=== PATIENT | female | born 1950 | race Two or more races ===

== ENCOUNTER 2018-02-26 22:12 | Inpatient (IN) | payer MEDICARE, BC ==
[2018-02-27] MEDS: morphine 4 MG/ML VIAL IV (00:52)
[2018-02-27] MEDS: SOD CHLORIDE 0.9% 1,000 ML IV ×2 (00:52→05:45)
[2018-02-27] MEDS: ONDANSETRON 4 MG INJ IV (00:52)
[2018-02-27 00:58] LABS: ADD MAN DIFF? NO
[2018-02-27 01:02] LABS: WHITE BLOOD COUNT 5.9 10^3/ul (4.8-10.8)
[2018-02-27 01:02] LABS: BASOPHILS % 0.7 % (0.0-2.0); EOSINOPHILS % 0.2 % (0.0-7.0); HEMATOCRIT 28.4 % (37.0-47.0); HEMOGLOBIN 9.3 g/dl (12.0-16.0); LYMPHOCYTES # 0.9 10^3/ul (0.8-2.9); LYMPHOCYTES % 14.9 % (15.0-51.0); MEAN CORPUSCULAR HEMOGLOBIN 33.1 pg (29.0-33.0); MEAN CORPUSCULAR HGB CONC 32.7 g/dl (32.0-37.0); MEAN CORPUSCULAR VOLUME 101.1 fl (82.0-101.0); MEAN PLATELET VOLUME 9.9 fl (7.4-10.4); MONOCYTE # 1.3 10^3/ul (0.3-0.9); MONOCYTES % 21.1 % (0.0-11.0); NEUTROPHIL # 3.7 10^3/ul (1.6-7.5); NEUTROPHILS % 62.1 % (39.0-77.0); NUCLEATED RED BLOOD CELLS # 2.5 10^3/ul (0.0-0.0); NUCLEATED RED BLOOD CELLS% 41.7 /100WBC (0.0-0.0); PLATELET COUNT 353 10^3/UL (140-415); RED BLOOD COUNT 2.81 10^6/ul (4.20-5.40); RED CELL DISTRIBUTION WIDTH 16.4 % (11.5-14.5)
[2018-02-27 01:06] LABS: POSITIVE DIFF @See below
[2018-02-27 01:20] LABS: ALANINE AMINOTRANSFERASE 23 IU/L (13-69); ALBUMIN 3.9 g/dl (3.3-4.9); ALBUMIN/GLOBULIN RATIO 1.02; ALKALINE PHOSPHATASE 71 IU/L (42-121); ANION GAP 13 (8-16); ASPARTATE AMINO TRANSFERASE 34 IU/L (15-46); BILIRUBIN,INDIRECT 0.5 mg/dl (0-1.1); BILIRUBIN,TOTAL 0.5 mg/dl (0.2-1.3); BLOOD UREA NITROGEN 18 mg/dl (7-20); CALCIUM 9.7 mg/dl (8.4-10.2); CARBON DIOXIDE 28 mmol/L (21-31); CHLORIDE 102 mmol/L (97-110); CREATININE 0.71 mg/dl (0.44-1.00); GLUCOSE 139 mg/dl (70-220); LIPASE 12 U/L (23-300); POTASSIUM 3.8 mmol/L (3.5-5.1); SODIUM 139 mmol/L (135-144); TOTAL PROTEIN 7.7 g/dl (6.1-8.1)
[2018-02-27] MEDS: morphine 2 MG INJ IV ×2 (05:53→13:47)
[2018-02-27] MEDS ORDERED: ONDANSETRON 4 MG INJ IV (06:00)
[2018-02-27 11:41] LABS: ADD MAN DIFF? NO
[2018-02-27 11:44] LABS: WHITE BLOOD COUNT 4.1 10^3/ul (4.8-10.8)
[2018-02-27 11:44] LABS: BASOPHILS % 0.5 % (0.0-2.0); EOSINOPHILS % 0.5 % (0.0-7.0); HEMATOCRIT 24.7 % (37.0-47.0); HEMOGLOBIN 8.1 g/dl (12.0-16.0); LYMPHOCYTES # 1.7 10^3/ul (0.8-2.9); LYMPHOCYTES % 41.8 % (15.0-51.0); MEAN CORPUSCULAR HEMOGLOBIN 33.5 pg (29.0-33.0); MEAN CORPUSCULAR HGB CONC 32.8 g/dl (32.0-37.0); MEAN CORPUSCULAR VOLUME 102.1 fl (82.0-101.0); MEAN PLATELET VOLUME 9.8 fl (7.4-10.4); MONOCYTE # 1.3 10^3/ul (0.3-0.9); NEUTROPHILS % 25.2 % (39.0-77.0); NUCLEATED RED BLOOD CELLS # 1.6 10^3/ul (0.0-0.0); NUCLEATED RED BLOOD CELLS% 38.4 /100WBC (0.0-0.0); PLATELET COUNT 289 10^3/UL (140-415); RED BLOOD COUNT 2.42 10^6/ul (4.20-5.40); RED CELL DISTRIBUTION WIDTH 16.8 % (11.5-14.5)
[2018-02-27 11:51] LABS: POSITIVE DIFF @See below
[2018-02-27 11:52] LABS: MONOCYTES % 31.5 % (0.0-11.0)
[2018-02-27 12:11] LABS: ANION GAP 9 (8-16); BLOOD UREA NITROGEN 14 mg/dl (7-20); CALCIUM 8.4 mg/dl (8.4-10.2); CARBON DIOXIDE 30 mmol/L (21-31); CHLORIDE 105 mmol/L (97-110); GLUCOSE 86 mg/dl (70-220); POTASSIUM 3.5 mmol/L (3.5-5.1); SODIUM 140 mmol/L (135-144)
[2018-02-27] MEDS: D5W-0.45 NACL + KCL 20 MEQ 1,000 ML IV ×2 (13:18→22:13)
[2018-02-27] MEDS: ENOXAPARIN 40 MG/0.4 ML SYG SC (13:47)
[2018-02-27] MEDS: PANTOPRAZOLE 40 MG INJ IV (16:04)
[2018-02-27 16:12] LABS: ADD UMIC NO; UR ASCORBIC ACID NEGATIVE (NEGATIVE); UR BILIRUBIN (Dip) NEGATIVE (NEGATIVE); UR BLOOD (Dip) NEGATIVE (NEGATIVE); UR CLARITY CLEAR (CLEAR); UR COLOR YELLOW (YELLOW); UR GLUCOSE (Dip) NEGATIVE (NEGATIVE); UR KETONES (Dip) NEGATIVE (NEGATIVE); UR LEUKOCYTE ESTERASE (Dip) NEGATIVE Leu/ul (NEGATIVE); UR NITRITE (Dip) NEGATIVE (NEGATIVE); UR SPECIFIC GRAVITY (Dip) 1.014 (1.003-1.030); UR TOTAL PROTEIN (Dip) NEGATIVE (NEGATIVE); UR UROBILINOGEN (Dip) NEGATIVE (NEGATIVE)
[2018-02-27] MEDS: LORAZEPAM 2 MG INJ IV (22:14)
[2018-02-28 05:07] LABS: WHITE BLOOD COUNT 3.9 10^3/ul (4.8-10.8)
[2018-02-28 05:07] LABS: ABNORMAL IP MESSAGE 1; HEMATOCRIT 26.2 % (37.0-47.0); HEMOGLOBIN 8.6 g/dl (12.0-16.0); MEAN CORPUSCULAR HEMOGLOBIN 33.3 pg (29.0-33.0); MEAN CORPUSCULAR HGB CONC 32.8 g/dl (32.0-37.0); MEAN CORPUSCULAR VOLUME 101.6 fl (82.0-101.0); PLATELET COUNT 311 10^3/UL (140-415); RED BLOOD COUNT 2.58 10^6/ul (4.20-5.40); RED CELL DISTRIBUTION WIDTH 16.7 % (11.5-14.5)
[2018-02-28 05:27] LABS: HEMOGLOBIN A1C 5.9 % (0-5.9)
[2018-02-28 05:28] LABS: ADD MAN DIFF? YES; POSITIVE DIFF @See below
[2018-02-28 05:37] LABS: ANION GAP 10 (8-16); BLOOD UREA NITROGEN 10 mg/dl (7-20); CALCIUM 8.9 mg/dl (8.4-10.2); CARBON DIOXIDE 29 mmol/L (21-31); CHLORIDE 106 mmol/L (97-110); CHOL/HDL RATIO 4.4 RATIO; CHOLESTEROL 132 mg/dl (100-200); GLUCOSE 141 mg/dl (70-220); HDL CHOLESTEROL 30 mg/dl (35-98); LDL CHOLESTEROL,CALCULATED 58 mg/dl; POTASSIUM 3.8 mmol/L (3.5-5.1); PROTIME 13.3 Sec (11.9-14.9); SODIUM 141 mmol/L (135-144); TRIGLYCERIDES 219 mg/dl (0-149)
[2018-02-28 05:38] LABS: PARTIAL THROMBOPLASTIN TIME 27.4 Sec (25.0-35.0)
[2018-02-28] MEDS: PANTOPRAZOLE 40 MG INJ IV (05:45)
[2018-02-28] MEDS: D5W-0.45 NACL + KCL 20 MEQ 1,000 ML IV ×2 (08:46→17:56)
[2018-02-28] MEDS: ENOXAPARIN 40 MG/0.4 ML SYG SC (08:46)
[2018-02-28 09:40] LABS: ANISOCYTOSIS 1+ (0-0); BASOPHILS % (M) 1 % (0-2); ERYTHROBLAST% (NRBC) (M) 18 % (0-0); GIANT THROMBO% (M) 2 % (0-0); LYMPHOCYTES #M 1.7 10^3/ul (0.8-2.9); LYMPHOCYTES % (M) 44 % (15-51); MONOCYTES % (M) 27 % (0-11); PLATELET ESTIMATE NORMAL; POLYCHROMASIA 3+ (0-0); REACTIVE LYMPHOCYTES #M 0.3 10^3/ul (0.0-0.0); REACTIVE LYMPHOCYTES% (M) 8 % (0-0); SEGMENTED NEUTROPHILS (M) % 20 % (39-77); SMUDGE%M 10 % (0-0)
[2018-02-28 19:13] LABS: TROPONIN-I < 0.012 ng/ml (0.000-0.120)
[2018-02-28] MEDS: LORAZEPAM 2 MG INJ IV (22:17)
[2018-03-01 01:41] LABS: TROPONIN-I < 0.012 ng/ml (0.000-0.120)
[2018-03-01 05:17] LABS: ADD MAN DIFF? NO
[2018-03-01 05:19] LABS: WHITE BLOOD COUNT 4.8 10^3/ul (4.8-10.8)
[2018-03-01 05:19] LABS: BASOPHILS % 0.6 % (0.0-2.0); EOSINOPHILS % 0.6 % (0.0-7.0); HEMATOCRIT 25.8 % (37.0-47.0); HEMOGLOBIN 8.5 g/dl (12.0-16.0); LYMPHOCYTES # 2.4 10^3/ul (0.8-2.9); LYMPHOCYTES % 49.5 % (15.0-51.0); MEAN CORPUSCULAR HEMOGLOBIN 33.2 pg (29.0-33.0); MEAN CORPUSCULAR HGB CONC 32.9 g/dl (32.0-37.0); MEAN CORPUSCULAR VOLUME 100.8 fl (82.0-101.0); MEAN PLATELET VOLUME 10.3 fl (7.4-10.4); MONOCYTE # 1.1 10^3/ul (0.3-0.9); MONOCYTES % 21.9 % (0.0-11.0); NEUTROPHIL # 1.3 10^3/ul (1.6-7.5); NUCLEATED RED BLOOD CELLS # 0.3 10^3/ul (0.0-0.0); NUCLEATED RED BLOOD CELLS% 6.7 /100WBC (0.0-0.0); PLATELET COUNT 310 10^3/UL (140-415); RED BLOOD COUNT 2.56 10^6/ul (4.20-5.40); RED CELL DISTRIBUTION WIDTH 16.3 % (11.5-14.5)
[2018-03-01 05:50] LABS: ANION GAP 11 (8-16); BLOOD UREA NITROGEN 7 mg/dl (7-20); CALCIUM 8.7 mg/dl (8.4-10.2); CARBON DIOXIDE 28 mmol/L (21-31); CHLORIDE 105 mmol/L (97-110); CREATININE 0.68 mg/dl (0.44-1.00); GLUCOSE 229 mg/dl (70-220); POTASSIUM 4.1 mmol/L (3.5-5.1); SODIUM 140 mmol/L (135-144)
[2018-03-01 05:51] LABS: CHOL/HDL RATIO 3.8 RATIO; HDL CHOLESTEROL 35 mg/dl (35-98); LDL CHOLESTEROL,CALCULATED 67 mg/dl; TRIGLYCERIDES 169 mg/dl (0-149)
[2018-03-01 05:51] LABS: CHOLESTEROL 136 mg/dl (100-200)
[2018-03-01 05:53] LABS: MAGNESIUM 0.6 mg/dl (1.7-2.5)
[2018-03-01 06:03] LABS: TROPONIN-I < 0.012 ng/ml (0.000-0.120)
[2018-03-01] MEDS: PANTOPRAZOLE 40 MG INJ IV (06:16)
[2018-03-01] MEDS: D5W-0.45 NACL + KCL 20 MEQ 1,000 ML IV ×3 (06:16→23:22)
[2018-03-01] MEDS: MAGNESIUM SULFATE 4 GM/100 ML 100 ML IVPB (08:22)
[2018-03-01] MEDS: DIATR MEGLU/DIATRIZOATE SODIUM 120 ML BTL (09:02)
[2018-03-01] MEDS: ENOXAPARIN 40 MG/0.4 ML SYG SC (09:11)
[2018-03-01 16:18] LABS: MAGNESIUM 2.4 mg/dl (1.7-2.5)
[2018-03-02] MEDS: LORAZEPAM 2 MG INJ IV ×2 (00:40→22:40)
[2018-03-02] MEDS: PANTOPRAZOLE 40 MG INJ IV (05:50)
[2018-03-02 06:17] LABS: ANION GAP 12 (8-16); BLOOD UREA NITROGEN 8 mg/dl (7-20); CARBON DIOXIDE 26 mmol/L (21-31); CHLORIDE 106 mmol/L (97-110); GLUCOSE 193 mg/dl (70-220); POTASSIUM 3.9 mmol/L (3.5-5.1); SODIUM 140 mmol/L (135-144)
[2018-03-02 06:28] LABS: MAGNESIUM 1.5 mg/dl (1.7-2.5)
[2018-03-02] MEDS: ENOXAPARIN 40 MG/0.4 ML SYG SC (09:40)
[2018-03-02] MEDS: D5W-0.45 NACL + KCL 20 MEQ 1,000 ML IV ×2 (09:40→20:12)
[2018-03-02 13:04] LABS: FOLATE > 20.0 ng/ml (2.8-20.0)
[2018-03-02] MEDS ORDERED: morphine LIQ (10 MG/5 ML) CUP PO (13:30)
[2018-03-03] MEDS: PANTOPRAZOLE 40 MG INJ IV (05:19)
[2018-03-03] MEDS: D5W-0.45 NACL + KCL 20 MEQ 1,000 ML IV ×3 (05:24→15:42)
[2018-03-03] MEDS: ENOXAPARIN 40 MG/0.4 ML SYG SC (09:13)
[2018-03-03 14:17] LABS: ADD MAN DIFF? NO
[2018-03-03 14:20] LABS: BASOPHILS % 0.4 % (0.0-2.0); EOSINOPHILS % 0.7 % (0.0-7.0); HEMOGLOBIN 8.8 g/dl (12.0-16.0); LYMPHOCYTES # 2.7 10^3/ul (0.8-2.9); LYMPHOCYTES % 49.9 % (15.0-51.0); MEAN CORPUSCULAR HGB CONC 32.6 g/dl (32.0-37.0); MEAN CORPUSCULAR VOLUME 101.1 fl (82.0-101.0); MEAN PLATELET VOLUME 9.6 fl (7.4-10.4); MONOCYTE # 0.8 10^3/ul (0.3-0.9); MONOCYTES % 14.9 % (0.0-11.0); NEUTROPHIL # 1.8 10^3/ul (1.6-7.5); NEUTROPHILS % 33.7 % (39.0-77.0); NUCLEATED RED BLOOD CELLS # 0.1 10^3/ul (0.0-0.0); PLATELET COUNT 307 10^3/UL (140-415); RED BLOOD COUNT 2.67 10^6/ul (4.20-5.40); RED CELL DISTRIBUTION WIDTH 15.9 % (11.5-14.5)
[2018-03-03 14:20] LABS: WHITE BLOOD COUNT 5.4 10^3/ul (4.8-10.8)
[2018-03-03 14:40] LABS: ANION GAP 12 (8-16); BLOOD UREA NITROGEN 9 mg/dl (7-20); CALCIUM 9.2 mg/dl (8.4-10.2); CARBON DIOXIDE 25 mmol/L (21-31); CHLORIDE 106 mmol/L (97-110); CREATININE 0.76 mg/dl (0.44-1.00); GLUCOSE 122 mg/dl (70-220); POTASSIUM 4.1 mmol/L (3.5-5.1); SODIUM 139 mmol/L (135-144)
[2018-03-03 14:51] LABS: MAGNESIUM 0.8 mg/dl (1.7-2.5)
[2018-03-03] MEDS: MAGNESIUM SULFATE 4 GM/100 ML 100 ML IVPB (15:36)
[2018-03-03] MEDS: LORAZEPAM 2 MG INJ IV (23:28)
[2018-03-04] MEDS: D5W-0.45 NACL + KCL 20 MEQ 1,000 ML IV ×3 (01:28→20:56)
[2018-03-04 05:13] LABS: ADD MAN DIFF? NO
[2018-03-04 05:20] LABS: WHITE BLOOD COUNT 5.9 10^3/ul (4.8-10.8)
[2018-03-04 05:20] LABS: BASOPHILS % 0.5 % (0.0-2.0); EOSINOPHILS % 0.7 % (0.0-7.0); HEMATOCRIT 27.6 % (37.0-47.0); HEMOGLOBIN 9.1 g/dl (12.0-16.0); LYMPHOCYTES # 2.9 10^3/ul (0.8-2.9); LYMPHOCYTES % 48.5 % (15.0-51.0); MEAN CORPUSCULAR HEMOGLOBIN 33.5 pg (29.0-33.0); MEAN CORPUSCULAR VOLUME 101.5 fl (82.0-101.0); MEAN PLATELET VOLUME 10.1 fl (7.4-10.4); MONOCYTE # 1.1 10^3/ul (0.3-0.9); NEUTROPHIL # 1.8 10^3/ul (1.6-7.5); NUCLEATED RED BLOOD CELLS # 0.1 10^3/ul (0.0-0.0); NUCLEATED RED BLOOD CELLS% 1.5 /100WBC (0.0-0.0); PLATELET COUNT 327 10^3/UL (140-415); RED BLOOD COUNT 2.72 10^6/ul (4.20-5.40); RED CELL DISTRIBUTION WIDTH 15.8 % (11.5-14.5)
[2018-03-04 05:46] LABS: ANION GAP 11 (8-16); BLOOD UREA NITROGEN 11 mg/dl (7-20); CALCIUM 9.8 mg/dl (8.4-10.2); CARBON DIOXIDE 26 mmol/L (21-31); CHLORIDE 107 mmol/L (97-110); CREATININE 0.78 mg/dl (0.44-1.00); GLUCOSE 118 mg/dl (70-220); SODIUM 140 mmol/L (135-144)
[2018-03-04] MEDS: PANTOPRAZOLE 40 MG INJ IV (06:07)
[2018-03-04 08:12] LABS: MAGNESIUM 1.6 mg/dl (1.7-2.5)
[2018-03-04] MEDS: ENOXAPARIN 40 MG/0.4 ML SYG SC (08:49)
[2018-03-04] MEDS: BISACODYL 10 MG SUPP PR (15:17)
[2018-03-04] MEDS: MAGNESIUM SULFATE 2 GM/50 ML 50 ML IVPB (16:58)
[2018-03-04] MEDS: DOCUSATE SODIUM 100 MG CAP PO (18:08)
[2018-03-04] MEDS: BISACODYL (EC) 5 MG TAB PO (18:08)
[2018-03-04] MEDS: LORAZEPAM 2 MG INJ IV (22:04)
[2018-03-05] MEDS: PANTOPRAZOLE 40 MG INJ IV (05:16)
[2018-03-05 05:50] LABS: ANION GAP 13 (8-16); BLOOD UREA NITROGEN 11 mg/dl (7-20); CALCIUM 10.1 mg/dl (8.4-10.2); CARBON DIOXIDE 24 mmol/L (21-31); CHLORIDE 104 mmol/L (97-110); CREATININE 0.83 mg/dl (0.44-1.00); GLUCOSE 124 mg/dl (70-220); MAGNESIUM 1.4 mg/dl (1.7-2.5); POTASSIUM 4.1 mmol/L (3.5-5.1); SODIUM 137 mmol/L (135-144)
[2018-03-05] MEDS: ENOXAPARIN 40 MG/0.4 ML SYG SC (09:00)
[2018-03-05] MEDS: D5W-0.45 NACL + KCL 20 MEQ 1,000 ML IV (17:23)
[2018-03-05] MEDS: KETOROLAC 15 MG INJ IV (17:53)
[2018-03-05] MEDS: MAGNESIUM SULFATE 4 GM/100 ML 100 ML IVPB (21:57)
[2018-03-05] MEDS: LORAZEPAM 2 MG INJ IV (22:13)
[2018-03-06] MEDS: PANTOPRAZOLE 40 MG INJ IV (06:11)
[2018-03-06 06:34] LABS: ANION GAP 12 (8-16); BLOOD UREA NITROGEN 17 mg/dl (7-20); CALCIUM 9.9 mg/dl (8.4-10.2); CARBON DIOXIDE 25 mmol/L (21-31); CHLORIDE 102 mmol/L (97-110); CREATININE 0.93 mg/dl (0.44-1.00); GLUCOSE 115 mg/dl (70-220); MAGNESIUM 3.1 mg/dl (1.7-2.5); SODIUM 135 mmol/L (135-144)
[2018-03-06] MEDS: ENOXAPARIN 40 MG/0.4 ML SYG SC (09:00)
[2018-03-06] MEDS: KETOROLAC 15 MG INJ IV (16:04)
[2018-03-06] MEDS ORDERED: ACETAMINOPHEN 325 MG TAB PO (20:00)
[2018-03-06] MEDS: LORAZEPAM 2 MG INJ IV (22:27)
[2018-03-06] MEDS: DEXTROSE 5%-0.9% NACL 1,000 ML IV (22:29)
[2018-03-06 23:18] LABS: TSH RECEPTOR ANTIBODY 2 (< OR = 16)
[2018-03-07] MEDS: KETOROLAC 15 MG INJ IV (04:38)
[2018-03-07 05:09] LABS: ADD MAN DIFF? NO
[2018-03-07 05:17] LABS: ABNORMAL IP MESSAGE 1; BASOPHILS % 0.3 % (0.0-2.0); EOSINOPHILS % 0.4 % (0.0-7.0); HEMATOCRIT 24.6 % (37.0-47.0); HEMOGLOBIN 8.1 g/dl (12.0-16.0); LYMPHOCYTES # 2.1 10^3/ul (0.8-2.9); LYMPHOCYTES % 27.1 % (15.0-51.0); MEAN CORPUSCULAR HEMOGLOBIN 33.3 pg (29.0-33.0); MEAN CORPUSCULAR HGB CONC 32.9 g/dl (32.0-37.0); MEAN CORPUSCULAR VOLUME 101.2 fl (82.0-101.0); MEAN PLATELET VOLUME 10.4 fl (7.4-10.4); MONOCYTE # 1.5 10^3/ul (0.3-0.9); MONOCYTES % 19.5 % (0.0-11.0); NEUTROPHIL # 4.1 10^3/ul (1.6-7.5); NEUTROPHILS % 52.2 % (39.0-77.0); NUCLEATED RED BLOOD CELLS% 0.4 /100WBC (0.0-0.0); PLATELET COUNT 260 10^3/UL (140-415); RED BLOOD COUNT 2.43 10^6/ul (4.20-5.40); RED CELL DISTRIBUTION WIDTH 15.7 % (11.5-14.5)
[2018-03-07 05:17] LABS: WHITE BLOOD COUNT 7.8 10^3/ul (4.8-10.8)
[2018-03-07 05:29] LABS: POSITIVE DIFF @See below
[2018-03-07 05:47] LABS: ANION GAP 14 (8-16); BLOOD UREA NITROGEN 18 mg/dl (7-20); CALCIUM 9.2 mg/dl (8.4-10.2); CARBON DIOXIDE 23 mmol/L (21-31); CHLORIDE 105 mmol/L (97-110); CREATININE 0.81 mg/dl (0.44-1.00); GLUCOSE 125 mg/dl (70-220); POTASSIUM 4.5 mmol/L (3.5-5.1); SODIUM 137 mmol/L (135-144)
[2018-03-07] MEDS: PANTOPRAZOLE 40 MG INJ IV (07:41)
[2018-03-07] MEDS: DEXTROSE 5%-0.9% NACL 1,000 ML IV (11:46)
[2018-03-07 12:36] LABS: MAGNESIUM 1.7 mg/dl (1.7-2.5)
[2018-03-07] MEDS ORDERED: LIDOCAINE 2% (SDV) 5 ML INJ (17:17)
[2018-03-07] MEDS ORDERED: PROPOFOL 40 ML (17:17)
[2018-03-07] MEDS: LORAZEPAM 2 MG INJ IV (23:09)
[2018-03-08] MEDS: DEXTROSE 5%-0.9% NACL 1,000 ML IV ×3 (00:40→14:00)
[2018-03-08 05:10] LABS: ADD MAN DIFF? NO
[2018-03-08 05:21] LABS: WHITE BLOOD COUNT 6.4 10^3/ul (4.8-10.8)
[2018-03-08 05:21] LABS: BASOPHILS % 0.5 % (0.0-2.0); EOSINOPHILS % 0.3 % (0.0-7.0); HEMATOCRIT 23.4 % (37.0-47.0); HEMOGLOBIN 7.5 g/dl (12.0-16.0); LYMPHOCYTES # 2.1 10^3/ul (0.8-2.9); MEAN CORPUSCULAR HEMOGLOBIN 32.6 pg (29.0-33.0); MEAN CORPUSCULAR HGB CONC 32.1 g/dl (32.0-37.0); MEAN CORPUSCULAR VOLUME 101.7 fl (82.0-101.0); MEAN PLATELET VOLUME 10.6 fl (7.4-10.4); MONOCYTE # 1.4 10^3/ul (0.3-0.9); MONOCYTES % 21.2 % (0.0-11.0); NEUTROPHIL # 2.9 10^3/ul (1.6-7.5); NEUTROPHILS % 44.7 % (39.0-77.0); NUCLEATED RED BLOOD CELLS% 0.6 /100WBC (0.0-0.0); PLATELET COUNT 343 10^3/UL (140-415); RED CELL DISTRIBUTION WIDTH 15.9 % (11.5-14.5)
[2018-03-08 05:33] LABS: ANION GAP 14 (8-16); BLOOD UREA NITROGEN 14 mg/dl (7-20); CALCIUM 9.2 mg/dl (8.4-10.2); CARBON DIOXIDE 25 mmol/L (21-31); CHLORIDE 106 mmol/L (97-110); CREATININE 0.81 mg/dl (0.44-1.00); GLUCOSE 107 mg/dl (70-220); POTASSIUM 4.6 mmol/L (3.5-5.1); SODIUM 140 mmol/L (135-144)
[2018-03-08] MEDS: PANTOPRAZOLE 40 MG INJ IV (06:22)
[2018-03-08] MEDS: HEPARIN (100 UNITS/ML) 5 ML SYG CATHETER (18:27)
== END 2018-03-08 19:50 | disposition home or self-care (01) | DRG 390 ==
LOC: E/R 22:12 → MS1 02-27 03:00
PROC: 0DB68ZX Excision of Stomach, Via Natural or Artificial Opening Endoscopic, Diagnostic (ICD-10-PCS; principal; 2018-03-07 16:30)
DX: K56.609 Unspecified intestinal obstruction, unspecified as to partial versus complete obstruction (principal); K29.70 Gastritis, unspecified, without bleeding; K80.80 Other cholelithiasis without obstruction; K44.9 Diaphragmatic hernia without obstruction or gangrene; I95.9 Hypotension, unspecified; E78.5 Hyperlipidemia, unspecified; E83.42 Hypomagnesemia; D63.0 Anemia in neoplastic disease; D64.81 Anemia due to antineoplastic chemotherapy; K59.00 Constipation, unspecified; D72.819 Decreased white blood cell count, unspecified; R11.0 Nausea; K12.30 Oral mucositis (ulcerative), unspecified; Z85.43 Personal history of malignant neoplasm of ovary; Z90.81 Acquired absence of spleen; Z90.12 Acquired absence of left breast and nipple; Z85.3 Personal history of malignant neoplasm of breast; Z90.710 Acquired absence of both cervix and uterus
CPT/HCPCS: 36415; 71045; 74176; 74181; 74250; 80048; 80053; 80061; 81003; 82607; 82746; 82962; 83036; 83690; 83735; 84235; 84484; 85025; 85610; 85730; 88305; 93005; 93306; 96361; 96374; 96375; 99285-25

== ENCOUNTER 2018-06-05 22:13 | Inpatient (IN) | payer MEDICARE, BC ==
[2018-06-05 23:56] LABS: ABNORMAL IP MESSAGE 1; HEMATOCRIT 21.9 % (37.0-47.0); HEMOGLOBIN 7.1 g/dl (12.0-16.0); MEAN CORPUSCULAR HEMOGLOBIN 31.7 pg (29.0-33.0); MEAN CORPUSCULAR HGB CONC 32.4 g/dl (32.0-37.0); MEAN CORPUSCULAR VOLUME 97.8 fl (82.0-101.0); MEAN PLATELET VOLUME 10.4 fl (7.4-10.4); NUCLEATED RED BLOOD CELLS% 1.3 /100WBC (0.0-0.0); RED BLOOD COUNT 2.24 10^6/ul (4.20-5.40); RED CELL DISTRIBUTION WIDTH 15.8 % (11.5-14.5)
[2018-06-05 23:56] LABS: WHITE BLOOD COUNT 6.1 10^3/ul (4.8-10.8)
[2018-06-06 00:02] LABS: ADD MAN DIFF? YES; POSITIVE DIFF @See below
[2018-06-06 00:04] LABS: PLATELET COUNT 14 10^3/UL (140-415)
[2018-06-06 00:13] LABS: INR 0.95; PROTIME 12.8 Sec (11.9-14.9)
[2018-06-06 00:14] LABS: PARTIAL THROMBOPLASTIN TIME 29.7 Sec (25.0-35.0)
[2018-06-06 00:27] LABS: ALANINE AMINOTRANSFERASE 54 IU/L (13-69); ALBUMIN 3.7 g/dl (3.3-4.9); ALBUMIN/GLOBULIN RATIO 0.86; ALKALINE PHOSPHATASE 254 IU/L (42-121); ANION GAP 16 (8-16); ASPARTATE AMINO TRANSFERASE 72 IU/L (15-46); BILIRUBIN,INDIRECT 0.2 mg/dl (0-1.1); BILIRUBIN,TOTAL 0.2 mg/dl (0.2-1.3); BLOOD UREA NITROGEN 18 mg/dl (7-20); CALCIUM 8.9 mg/dl (8.4-10.2); CARBON DIOXIDE 24 mmol/L (21-31); CHLORIDE 105 mmol/L (97-110); GLUCOSE 110 mg/dl (70-220); POTASSIUM 3.6 mmol/L (3.5-5.1); SODIUM 141 mmol/L (135-144)
[2018-06-06 00:30] LABS: MAGNESIUM 1.1 mg/dl (1.7-2.5)
[2018-06-06 00:30] LABS: LIPASE 21 U/L (23-300)
[2018-06-06 00:46] LABS: ANISOCYTOSIS 1+ (0-0); BAND NEUTROPHILS #M 0.2 10^3/ul (0.0-0.6); BAND NEUTROPHILS % (M) 4 % (0-4); ERYTHROBLAST% (NRBC) (M) 2 % (0-0); LYMPHOCYTES % (M) 18 % (15-51); MONOCYTE #M 0.9 10^3/ul (0.3-0.9); MONOCYTES % (M) 15 % (0-11); MYELOCYTES #M 0.1 10^3/ul (0.0-0.0); MYELOCYTES % (M) 2 % (0-0); PLATELET ESTIMATE SIG DECREASED; SEG NEUT #M 3.7 10^3/ul (1.6-7.5); SEGMENTED NEUTROPHILS (M) % 61 % (39-77); SMUDGE%M 32 % (0-0)
[2018-06-06] MEDS: MAGNESIUM OXIDE 400 MG TAB PO (02:36)
[2018-06-06 02:42] LABS: IMMEDIATE SPIN CROSSMATCH 1 1
[2018-06-06] MEDS: ONDANSETRON 4 MG TAB PO (06:07)
[2018-06-06] MEDS: PANTOPRAZOLE (EC) 40 MG TAB PO (06:07)
[2018-06-06 06:31] LABS: TYPE AND SCREEN 1
[2018-06-06] MEDS ORDERED: BARIUM SULF 2% 450 ML BTL (BERRY SMOOTHIE) PO (09:00)
[2018-06-06] MEDS ORDERED: traMADol 50 MG TAB PO (09:30)
[2018-06-06] MEDS ORDERED: ONDANSETRON 4 MG TAB PO (09:30)
[2018-06-06] MEDS ORDERED: LORAZEPAM 1 MG TAB PO (09:30)
[2018-06-06 11:21] LABS: ADD MAN DIFF? NO
[2018-06-06 11:24] LABS: ABNORMAL IP MESSAGE 1; BASOPHILS % 0.4 % (0.0-2.0); EOSINOPHILS % 0.2 % (0.0-7.0); HEMATOCRIT 24.8 % (37.0-47.0); HEMOGLOBIN 8.4 g/dl (12.0-16.0); LYMPHOCYTES # 1.3 10^3/ul (0.8-2.9); LYMPHOCYTES % 24.2 % (15.0-51.0); MEAN CORPUSCULAR HEMOGLOBIN 31.9 pg (29.0-33.0); MEAN CORPUSCULAR HGB CONC 33.9 g/dl (32.0-37.0); MEAN CORPUSCULAR VOLUME 94.3 fl (82.0-101.0); MEAN PLATELET VOLUME 10.1 fl (7.4-10.4); MONOCYTE # 0.9 10^3/ul (0.3-0.9); MONOCYTES % 17.4 % (0.0-11.0); NEUTROPHIL # 2.9 10^3/ul (1.6-7.5); NUCLEATED RED BLOOD CELLS # 0.1 10^3/ul (0.0-0.0); NUCLEATED RED BLOOD CELLS% 2.5 /100WBC (0.0-0.0); PLATELET COUNT 69 10^3/UL (140-415); POSITIVE DIFF @See below; RED BLOOD COUNT 2.63 10^6/ul (4.20-5.40); RED CELL DISTRIBUTION WIDTH 16.6 % (11.5-14.5)
[2018-06-06 11:24] LABS: WHITE BLOOD COUNT 5.2 10^3/ul (4.8-10.8)
[2018-06-06 11:46] LABS: ANION GAP 11 (8-16); BLOOD UREA NITROGEN 14 mg/dl (7-20); CARBON DIOXIDE 28 mmol/L (21-31); CHLORIDE 106 mmol/L (97-110); CREATININE 0.77 mg/dl (0.44-1.00); GLUCOSE 94 mg/dl (70-220); POTASSIUM 3.7 mmol/L (3.5-5.1); SODIUM 141 mmol/L (135-144)
[2018-06-06] MEDS: MAGNESIUM SULFATE 3 GM in DEXTROSE 5% 100 ML IVPB (13:26)
[2018-06-06] MEDS: HEPARIN (100 UNITS/ML) 5 ML SYG CATHETER (17:26)
[2018-06-06] MEDS ORDERED: FAMOTIDINE 20 MG TAB PO (21:00)
[2018-06-07] MEDS ORDERED: FERROUS SULFATE (EC) 325 MG TAB PO (09:00)
[2018-06-07] MEDS ORDERED: GABAPENTIN 300 MG CAP PO (09:00)
== END 2018-06-06 17:36 | disposition home health service (06) | DRG 812 ==
LOC: E/R 22:13 → MS1 06-06 04:05
PROC: 30233N1 Transfusion of Nonautologous Red Blood Cells into Peripheral Vein, Percutaneous Approach (ICD-10-PCS; principal; 2018-06-06)
PROC: 6A550Z2 Pheresis of Platelets, Single (ICD-10-PCS; 2018-06-06)
DX: D64.9 Anemia, unspecified (principal); C56.9 Malignant neoplasm of unspecified ovary; C79.9 Secondary malignant neoplasm of unspecified site; D69.6 Thrombocytopenia, unspecified; Z87.891 Personal history of nicotine dependence; E83.42 Hypomagnesemia; Z79.899 Other long term (current) drug therapy; E03.9 Hypothyroidism, unspecified; E78.5 Hyperlipidemia, unspecified; E11.9 Type 2 diabetes mellitus without complications; Z85.3 Personal history of malignant neoplasm of breast; Z90.12 Acquired absence of left breast and nipple
CPT/HCPCS: 36430; 80048; 80053; 81025; 83690; 83735; 85025; 85610; 85730; 86644; 86850; 86900; 86901; 86920; 86945; 93005; 99285-25